=== PATIENT | female | born 1950 | race Caucasian/White ===

== ENCOUNTER 2018-05-08 17:50 | Emergency (ER) | payer MEDICARE, BC ==
[2018-05-08] MEDS ORDERED: Tetan/Diph/Pertus SYR(Tdap)* 0.5 ML SYR(BOOSTRIX) use SYR IM ONE (20:57)
[2018-05-08] MEDS ORDERED: Acetaminophen TAB* 325 MG PO ONE (20:57)
--- NOTE | 2018-05-08 21:13 | ED ---
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 Bleeding is well controlled on arrival. Patient is extremely emotional. Endorses 8/10 pain. Denies any blood thinners. Last tetanus unknown. - History of Current Complaint Stated Complaint: LT RING FINGER LACERATION Time Seen by Provider: 05/08/18 19:50 Hx Obtained From: Patient Mechanism of Injury: Sharp/Blunt Trauma Onset/Duration: Sudden Onset Aggravating: Movement Alleviating: Compression Timing: Constant Onset Severity: Mild Current Severity: Mild Pain Intensity: 10 Pain Scale Used: 0-10 Numeric Associated Signs & Symptoms: Negative PMH/Surg Hx/FS Hx/Imm Hx Previously Healthy: Yes - Immunization History Hx Pertussis Vaccination: No Immunizations Up to Date: Yes Infectious Disease History: No Infectious Disease History: Denies: Traveled Outside the [place] in Last 30 Days - Social History Occupation: Unemployed Lives: Alone Alcohol Use: None Hx Substance Use: No Substance Use Type: Reports: None Hx Tobacco Use: No Smoking Status (MU): Never Smoked Tobacco Review of Systems Constitutional: Negative Negative: Fever, Chills, Fatigue, Skin Diaphoresis Negative: Epistaxis, Dental Pain Negative: Palpitations, Chest Pain Negative: Shortness Of Breath, Cough Gastrointestinal: Negative Negative: Abdominal Pain, Vomiting Negative: Arthralgia, Myalgia Skin: Negative Positive: Other - laceration Neurological: Negative All Other Systems Reviewed And Are Negative: Yes Physical Exam Vital Signs On Initial Exam: Initial Vitals Temp Pulse Resp BP Pulse Ox 97.8 F 102 16 145/97 98 05/08/18 18:00 05/08/18 18:00 05/08/18 18:00 05/08/18 18:00 05/08/18 18:00 Diagnostics - Vital Signs Vital Signs Temp Pulse Resp BP Pulse Ox 05/08/18 18:00 97.8 F 102 16 145/97 98 - Laboratory Lab Statement: Any lab studies that have been ordered have been reviewed, and results considered in the medical decision making process. Laceration Repair Course/Dx - Course Course Of Treatment: During the course of treatment, the patient is evaluated for left middle and ring finger lacerations from pruning sandro. Time out obtained. 1 mL lidocaine without epi used as local anesthetic with good effect. Cleanse wound thoroughly with chlorhexidine. 5, 5-0 sutures placed to the ring finger. No repair needed for the middle finger. Both were tube gauze wrapped. Ibuprofen and tetanus updated. - Differential Dx Differental Diagnoses: Laceration - Clinical Impression Provider Diagnoses: Finger laceration Discharge - Sign-Out/Discharge Documenting (check all that apply): Patient Departure - Discharge Plan Condition: Stable Disposition: HOME Referrals: Tyler Smith DO [Primary Care Provider] - Additional Instructions: Suture removal in 7 days Keep the area covered x 24 hours or so You may then leave open to air or place bandaid over BOTH lacerations - Billing Disposition and Condition Condition: STABLE Disposition: Home
[2018-05-08 21:56] VITALS: BP 145/87
== END 2018-05-08 21:54 | disposition home or self-care (01) ==
LOC: ED 17:50
DX: S61.213A Laceration without foreign body of left middle finger without damage to nail, initial encounter (principal); S61.215A Laceration without foreign body of left ring finger without damage to nail, initial encounter; W26.8XXA Contact with other sharp object(s), not elsewhere classified, initial encounter; Y92.9 Unspecified place or not applicable
CPT/HCPCS: 90471; 90715; 99281; A9270-GY

== ENCOUNTER 2018-12-12 18:13 | Emergency (ER) | payer MEDICARE, BC ==
[2018-12-12 18:34] VITALS: BP 113/65
--- NOTE | 2018-12-12 19:08 | UC ---
Skin Complaint HPI - HPI Summary HPI Summary: 68 yo female was raking leaves and removing downed branches from her wood noted a tick on lat right chest not engorged on a max of four hours - History of Current Complaint Chief Complaint: [facility] Time Seen by Provider: 12/12/18 18:41 Stated Complaint: TICK BITE Hx Obtained From: Patient Hx Last Menstrual Period: BILATERAL OOPHERECTOMY Onset/Duration: Sudden Onset Skin Exposure Onset/Duration: Minutes Ago Timing: Constant Onset Severity: Mild Current Severity: Mild Pain Intensity: 1 Location: Discrete Character: Redness Aggravating Factor(s): Nothing Alleviating Factor(s): Nothing Associated Signs & Symptoms: Positive: Negative Related History: Insect Bite/Sting - Allergy/Home Medications Allergies/Adverse Reactions: Allergies Allergy/AdvReac Type Severity Reaction Status Date / Time morphine Allergy Severe SEVERE Verified 12/12/18 18:37 ANXIETY, PANIC ATTACK, VOMITING Sulfa (Sulfonamide Allergy NAUSEA, Verified 12/12/18 18:37 Antibiotics) HEADACHE Home Medications: Home Medications Calcium Carbonate [Calcium] 500 mg PO DAILY 12/12/18 [History Confirmed 12/12/18 ] Cholecalciferol (Vitamin D3) [Vitamin D3] 5,000 unit PO WEEKLY 12/12/18 [ History Confirmed 12/12/18] FLUoxetine CAP* [Prozac CAP*] 5 mg PO DAILY 12/12/18 [History Confirmed 12/12/18 ] Magnesium 1 tab PO DAILY 12/12/18 [History Confirmed 12/12/18] Zinc 1 tab PO DAILY 12/12/18 [History Confirmed 12/12/18] clonazePAM TAB(*) [Klonopin TAB(*)] 1 tab PO BEDTIME 12/12/18 [History Confirmed 12/12/18] PMH/Surg Hx/FS Hx/Imm Hx Previously Healthy: Yes - Surgical History Surgical History: Yes Surgery Procedure, Year, and Place: BILATERAL OOPHERECTOMY - Family History Known Family History: Positive: Hypertension - Social History Alcohol Use: None Substance Use Type: None Smoking Status (MU): Never Smoked Tobacco Review of Systems All Other Systems Reviewed And Are Negative: Yes Constitutional: Positive: Fever Skin: Positive: Other - tick bite Eyes: Positive: Negative ENT: Positive: Negative Respiratory: Positive: Negative Cardiovascular: Positive: Negative Gastrointestinal: Positive: Negative Genitourinary: Positive: Negative Motor: Positive: Negative Neurovascular: Positive: Negative Musculoskeletal: Positive: Negative Neurological: Positive: Negative Psychological: Positive: Negative Physical Exam Triage Information Reviewed: Yes Appearance: Well-Appearing, No Pain Distress, Well-Nourished Vital Signs: Initial Vital Signs Temp 98.3 F 12/12/18 18:28 Pulse 70 12/12/18 18:28 Resp 16 12/12/18 18:28 BP 113/65 12/12/18 18:28 Pulse Ox 99 12/12/18 18:28 Vital Signs Reviewed: Yes Eyes: Positive: Conjunctiva Clear ENT: Positive: Hearing grossly normal. Negative: Nasal congestion, Nasal drainage, Trismus, Muffled voice, Hoarse voice, Uvula midline Dental Exam: Normal Neck: Positive: Supple, Nontender, No Lymphadenopathy Respiratory: Positive: Lungs clear, Normal breath sounds, No respiratory distress, No accessory muscle use Cardiovascular: Positive: RRR, No Murmur Musculoskeletal: Positive: ROM Intact, No Edema Neurological: Positive: Alert Psychological Exam: Normal Skin Exam: Other - 5mm erythema surrounding tick bite, one mandible noted. I removed as much of the mandible as I could with splinter forceps Course/Dx - Diagnoses Provider Diagnosis: Tick bite of right side of chest wall Discharge - Sign-Out/Discharge Documenting (check all that apply): Patient Departure All imaging exams completed and their final reports reviewed: No Studies - Discharge Plan Condition: Stable Disposition: HOME Patient Education Materials: Tick Bite (ED) Referrals: Tyler Smith DO [Primary Care Provider] - If Needed Additional Instructions: The redness around your tick bite is due to a local reaction as opposed to a tick borne infection The tick needs to be attached much longer than a few hours to transmit Lyme disease - Billing Disposition and Condition Condition: STABLE Disposition: Home
== END 2018-12-12 19:16 | disposition home or self-care (01) ==
LOC: UCEAST 18:13
DX: S20.361A Insect bite (nonvenomous) of right front wall of thorax, initial encounter (principal); R50.9 Fever, unspecified; W57.XXXA Bitten or stung by nonvenomous insect and other nonvenomous arthropods, initial encounter; Y93.H1 Activity, digging, shoveling and raking; Y92.096 Garden or yard of other non-institutional residence as the place of occurrence of the external cause; Z88.5 Allergy status to narcotic agent; Z88.2 Allergy status to sulfonamides
CPT/HCPCS: 99211; G0463